=== PATIENT | male | born 1930 | race Hispanic/Latino ===

== ENCOUNTER 2020-03-13 21:18 | Inpatient (IN) | payer OTHER ==
[~2020-03-13] VITALS: Ht 175.3 cm; Wt 63.4 kg
[~2020-03-13 21:18] MED LIST: AEC81 PO; AMLO-257 PO; FINA5TAB41 PO; HYDR12.530 PO; LEVO500T2 PO; METF-444 PO; SERT25TA5 PO; TAMS0.4C32 PO
[2020-03-13 22:58] LABS: RAPID GROUP A STREP NEGATIVE (NEGATIVE)
[2020-03-13 23:15] LABS: BASOPHILS % (AUTO) 0.2 % (0.0-5.0); EOSINOPHILS % (AUTO) 0.2 % (0.0-8.0); HEMATOCRIT 38.1 % (42-54); LYMPHOCYTES % (AUTO) 21.7 % (21.0-51.0); MEAN CORPUSCULAR HEMOGLOBIN 26.1 pg (27.0-33.0); MEAN CORPUSCULAR HGB CONC 33.1 g/dL (32.0-36.0); MEAN CORPUSCULAR VOLUME 78.9 fL (79-99); MONOCYTES % (AUTO) 14.9 % (3.0-13.0); NEUTROPHILS % (AUTO) 62.6 % (40.0-77.0); PLATELET COUNT (AUTO) 147 K/uL (130-400); RED BLOOD CELL COUNT(AUTO) 4.83 MIL/uL (4.50-6.20); WHITE BLOOD COUNT (AUTO) 5.3 K/uL (4.8-10.8)
[2020-03-13 23:28] LABS: INR 1.07 (0.85-1.15); PARTIAL THROMBOPLASTIN TIME 35.2 SEC (26.3-35.5); PROTHROMBIN TIME 11.5 SEC (9.6-11.6)
[2020-03-13 23:29] LABS: ALBUMIN 3.2 g/dL (3.5-5.0); BILIRUBIN,TOTAL 0.5 mg/dL (0.2-1.0); CREATININE 1.5 mg/dL (0.5-1.5); TOTAL PROTEIN, SERUM 7.7 g/dL (6.0-8.3)
[2020-03-13 23:40] LABS: POTASSIUM 2.7 mmol/L (3.5-5.1)
[2020-03-13 23:51] LABS: B-TYPE NATRIURETIC PEPTIDE 36 pg/mL (0-100)
[2020-03-14] VITALS (7 sets, daily range): BP systolic 111–156; BP diastolic 66–79
[2020-03-14] MEDS ORDERED: ONDANSETRON HCL 4 MG/2 ML VIAL IV PRN (00:15)
[2020-03-14] MEDS ORDERED: GUAIFENESIN-DM 200/20 MG 10 ML PO PRN (00:15)
[2020-03-14] MEDS ORDERED: HYDROXYCHLOROQUINE SULFATE 200 MG TAB ONE (00:22)
[2020-03-14] MEDS ORDERED: AZITHROMYCIN 500MG+NS 250ML 250 ML IV SCH (00:30)
[2020-03-14] MEDS ORDERED: AZITHROMYCIN 250 MG TABLET PO ONE (00:41)
[2020-03-14 01:03] LABS: APPEARANCE,URINE Cloudy (CLEAR); BILIRUBIN,URINE Negative (NEGATIVE); COLOR,URINE Yellow (YELLOW); GLUCOSE, URINE (UA) Negative (NEGATIVE); KETONES,URINE 15 mg/dL (NEGATIVE); LEUKOCYTE ESTERASE ,URINE Large (NEGATIVE); NITRATE,URINE Negative (NEGATIVE); OCCULT BLOOD,URINE Small (NEGATIVE); PROTEIN,URINE POS 2+ mg/dL (NEGATIVE)
[2020-03-14] MEDS ORDERED: POTASSIUM CHLORIDE 20MEQ/100ML 100 ML IV PRN (01:15)
[2020-03-14] MEDS ORDERED: POTASSIUM CHLORIDE 20 MEQ ERTAB PO PRN (01:15)
[2020-03-14] MEDS ORDERED: LIDOCAINE HCL-MPF 1% 2ML VIAL IV PRN (01:15)
[2020-03-14 01:17] LABS: BACTERIA,URINE Few /HPF (None Seen); SQUAMOUS EPITHELIAL CELL,UR Few /HPF (0-2)
--- NOTE | 2020-03-14 01:30 | NUR ---
PT ARRIVED VIA STRETCHER WITH BRENNA ZAZUETA, FROM ER. PT AAOx3 DENIES PAIN. BED TO LOWEST LEVEL. CALL LIGHT WITHIN REACH. IV ON LEFT WRIST STARTED BY EMS. PT IS A BIT CONFUSED TO WHY HE IS HERE, HE WAS DISCHARGED FROM [facility] ON 03/11/20 AND ON REPORT WAS STATED WAS AT [facility] ABOUT A WEEK AGO AND WAS DISCHARGED. PT IS COMING FROM HOME. PT WAS SENT TO DC WITH A POTASSIUM LEVEL OF 2.7 NO COVERAGE WAS PROVIDED, WILL START POTASSIUM IV. NO MEDS WITH PATIENT. NEED TO CALL FAMILY TO BRING IN MEDS. PT IS ABLE TO WALK TO BATHROOM.
[2020-03-14] MEDS: CEFTRIAXONE SODIUM 1 GM IVP SCH ×2 (01:42→11:55)
[2020-03-14] MEDS ORDERED: POTASSIUM CHLORIDE 20MEQ/100ML 100 ML IV ONE (01:51)
[2020-03-14] MEDS ORDERED: LIDOCAINE HCL-MPF 1% 2ML VIAL ONE (01:51)
[2020-03-14 06:34] LABS: BASOPHILS % (AUTO) 0.2 % (0.0-5.0); EOSINOPHILS % (AUTO) 0.4 % (0.0-8.0); HEMATOCRIT 34.7 % (42-54); LYMPHOCYTES % (AUTO) 26.9 % (21.0-51.0); MEAN CORPUSCULAR HEMOGLOBIN 26.3 pg (27.0-33.0); MEAN CORPUSCULAR HGB CONC 32.6 g/dL (32.0-36.0); MEAN CORPUSCULAR VOLUME 80.7 fL (79-99); MONOCYTES % (AUTO) 18.8 % (3.0-13.0); NEUTROPHILS % (AUTO) 52.9 % (40.0-77.0); PLATELET COUNT (AUTO) 140 K/uL (130-400); RED CELL DISTRIBUTION WIDTH 16.3 % (11.0-15.5); WHITE BLOOD COUNT (AUTO) 5.1 K/uL (4.8-10.8)
[2020-03-14 06:54] LABS: ALBUMIN 2.5 g/dL (3.5-5.0); BILIRUBIN,DIRECT 0.1 mg/dL (0.0-0.3); BILIRUBIN,TOTAL 0.4 mg/dL (0.2-1.0); CREATININE 1.3 mg/dL (0.5-1.5); POTASSIUM 3.3 mmol/L (3.5-5.1); TOTAL PROTEIN, SERUM 6.7 g/dL (6.0-8.3)
[2020-03-14 07:44] LABS: CRP QUANTITATIVE 201.4 mg/L (0.00-9.0)
--- NOTE | 2020-03-14 08:00 | NUR ---
ASSESSMENT PT IS AAOX3 DENIES CP DENIES SOB DENIES NV NO COMPLAINTS RESTING IN BED. AM MEDS GIVEN. CALL LIGHT WITHIN REACH, ISOLATION MAINTAINED.
[2020-03-14] MEDS: FAMOTIDINE/PF 20 MG/2 ML VIAL IV SCH ×2 (08:12→20:35)
[2020-03-14] MEDS ORDERED: HYDROXYCHLOROQUINE SULFATE 200 MG TAB PO SCH (09:00)
[2020-03-14] MEDS: POTASSIUM CHLORIDE 10% ELIXIR 20 MEQ/15 ML UDCUP PO PRN (09:30)
[2020-03-14] MEDS ORDERED: POTASSIUM CHLORIDE 10% ELIXIR 20 MEQ/15 ML UDCUP PO SCH (09:30)
--- NOTE | 2020-03-14 11:48 | NUR ---
DCP: [facility] La spoke to pt's son Catarino Reina [phone], who reports that pt was here recently and was Sent to [facility]. Pt was discharged from [facility] on 03/02 to home. Son states that he noticed a big decline in pt since returning home. Pt was not eating, spending all his time in bed and son became concerned. Son took pt to [facility] [place] Saturday and pt was dc home with antibiotics for UTI. When son check on pt again, he saw he was worse and brought him to [facility] [place]. Per son, pt is a of 3 yrs, pt's son Westley stays with him, but is of no help to pt. Pt has son that lives next, Luis, who checks on pt when able. Son stated that pt has here in Oct because pt had cut off 4 fingers by accident with power tool. 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 Pt has no in home care services and no DME. Pt is seen at [facility] for medical care and meds. Son reports that they were in process of re admitting pt to [facility] for intermediate manager when he was readmitted. Family was working with Prudence at [facility] and would like for us to assist with placement at [facility]. Son states that pt has several family members that work there and pt was happy with care. Son gave verbal consent for referral to be made. CM notified CM of dc and she will work on referral Addendum: 03/14/20 at 1201 by GLORIA EDGE Amended: Links added.
[2020-03-14] MEDS: DOXYCYCLINE 100MG+NS 250ML 250 ML IV SCH ×2 (11:55→21:08)
--- NOTE | 2020-03-14 15:10 | NUR ---
SABINA PEÑA GOT NEW ORDER FOR SNF FOR RETAMA OR HNR FROM DR. KRISHNA. SPOKE TO SON CHARLIE GIBBS. SAID HE IS POA. OKAY WITH DAD GOING TO EITHER OF THOSE FACILITIES. ASKED HIM ABOUT [facility] SINCE HE SAID HE WAS HAPPY THERE. SAID ITS [facility]AY "DOES NOT NEED HIM TO BE HAPPY". SPOKE TO LUIS TO SEE IF SHE WAS USING [facility] FOR SNF. SAID NO SHE WAS USING [facility]. REMINDED ME THAT PATIENT HAD BEEN AT THEIR FACILITY 2 WEEKS AGO AND [facility] MIGHT NOT WANT PATIENT. STILL PENDING COVID RESULTS CANNOT SEND PATIENT UNTIL THEY ARE BACK. [facility] DID SAY THEY HAD GOTTEN THE AUTH FORM [facility] SINCE IT WAS SUBMITTED THERE. IT WILL BE GOOD FOR 3 DAYS UNTIL 03/16. Addendum: 03/14/20 at 1529 by LUZ MARINA DE LA CRUZ RN CM Amended: Links added.
[2020-03-14] MEDS: METHYLPREDNISOLONE SOD SUCC 40MG/ML 1ML IVP SCH (20:35)
[2020-03-15] MEDS: CEFTRIAXONE SODIUM 1 GM IVP SCH ×2 (00:30→12:10)
[2020-03-15 03:39] VITALS: BP 128/73
[2020-03-15 04:34] LABS: HEMATOCRIT 35.6 % (42-54); MEAN CORPUSCULAR HGB CONC 32.6 g/dL (32.0-36.0); MEAN CORPUSCULAR VOLUME 79.8 fL (79-99); PLATELET COUNT (AUTO) 144 K/uL (130-400); RED BLOOD CELL COUNT(AUTO) 4.46 MIL/uL (4.50-6.20); RED CELL DISTRIBUTION WIDTH 16.3 % (11.0-15.5); WHITE BLOOD COUNT (AUTO) 3.3 K/uL (4.8-10.8)
[2020-03-15 04:55] LABS: MAGNESIUM 2.1 mg/dL (1.80-2.40); PHOSPHORUS 2.4 mg/dL (2.5-4.9)
[2020-03-15 05:16] LABS: B-TYPE NATRIURETIC PEPTIDE 172 pg/mL (0-100)
[2020-03-15 05:31] LABS: CRP QUANTITATIVE 195.2 mg/L (0.00-9.0)
[2020-03-15 07:00] VITALS: BP 129/80
[2020-03-15] MEDS: FINASTERIDE 5 MG TABLET PO SCH (07:56)
[2020-03-15] MEDS: DOXYCYCLINE 100MG+NS 250ML 250 ML IV SCH ×2 (07:56→19:55)
[2020-03-15] MEDS: TAMSULOSIN HCL 0.4 MG CAP.ER.24H PO SCH (07:56)
[2020-03-15] MEDS: METHYLPREDNISOLONE SOD SUCC 40MG/ML 1ML IVP SCH ×2 (07:56→19:55)
[2020-03-15] MEDS: FAMOTIDINE/PF 20 MG/2 ML VIAL IV SCH ×2 (07:56→19:55)
--- NOTE | 2020-03-15 08:00 | NUR ---
ASSESSMENT PT IS AAOX3 DENIES CP DENIES SOB DENIES NV NO COMPLAINTS RESTING IN BED. TOLERATED MEAL. AM MEDS GIVEN. CALL LIGHT WITHIN REACH.
[2020-03-15 11:00] VITALS: BP 129/72
[2020-03-15 16:00] VITALS: BP 125/64
[2020-03-15 19:29] VITALS: BP 132/77
[2020-03-16] VITALS (7 sets, daily range): BP systolic 116–137; BP diastolic 62–83
[2020-03-16] MEDS: CEFTRIAXONE SODIUM 1 GM IVP SCH ×2 (00:57→08:17)
[2020-03-16 05:32] LABS: HEMATOCRIT 33.5 % (42-54); MEAN CORPUSCULAR HEMOGLOBIN 27.1 pg (27.0-33.0); MEAN CORPUSCULAR VOLUME 79.6 fL (79-99); PLATELET COUNT (AUTO) 182 K/uL (130-400); RED BLOOD CELL COUNT(AUTO) 4.21 MIL/uL (4.50-6.20); RED CELL DISTRIBUTION WIDTH 16.4 % (11.0-15.5); WHITE BLOOD COUNT (AUTO) 4.7 K/uL (4.8-10.8)
[2020-03-16] MEDS: FAMOTIDINE/PF 20 MG/2 ML VIAL IV SCH ×2 (08:17→20:21)
[2020-03-16] MEDS: METHYLPREDNISOLONE SOD SUCC 40MG/ML 1ML IVP SCH ×2 (08:17→20:21)
[2020-03-16] MEDS: DOXYCYCLINE 100MG+NS 250ML 250 ML IV SCH ×2 (08:18→20:20)
[2020-03-16] MEDS: TAMSULOSIN HCL 0.4 MG CAP.ER.24H PO SCH (08:18)
[2020-03-16] MEDS: FINASTERIDE 5 MG TABLET PO SCH (08:18)
--- NOTE | 2020-03-16 12:06 | NUR ---
CM Note: Sheila auth good up to 03/16. CM spoke to Prudence w/[facility]. Received clinicals, order, MARS, PASRR, Covid post acute assessment. Per Prudence pt has approval and auth good up to today 03/16. Pt will need reauth for tomorrow 03/17. EMS arranged and faxed for today, primary nurse to call [facility] once pt ready to DC. Pending MD clearance and DC order. Primary nurse aware. CM to cont to follow up.
[2020-03-16] MEDS ORDERED: SODIUM CHLORIDE 0.9% 250 ML IV ONE (17:07)
[2020-03-17] MEDS: CEFTRIAXONE SODIUM 1 GM IVP SCH (00:26)
[2020-03-17 04:04] VITALS: BP 143/73
[2020-03-17 05:43] LABS: HEMATOCRIT 33.6 % (42-54); MEAN CORPUSCULAR HGB CONC 32.7 g/dL (32.0-36.0); MEAN CORPUSCULAR VOLUME 79.4 fL (79-99); PLATELET COUNT (AUTO) 195 K/uL (130-400); RED BLOOD CELL COUNT(AUTO) 4.23 MIL/uL (4.50-6.20); RED CELL DISTRIBUTION WIDTH 16.4 % (11.0-15.5); WHITE BLOOD COUNT (AUTO) 6.4 K/uL (4.8-10.8)
[2020-03-17 08:00] VITALS: BP 126/86
[2020-03-17] MEDS: FINASTERIDE 5 MG TABLET PO SCH (09:57)
[2020-03-17] MEDS: FAMOTIDINE/PF 20 MG/2 ML VIAL IV SCH ×2 (09:57→21:28)
[2020-03-17] MEDS: TAMSULOSIN HCL 0.4 MG CAP.ER.24H PO SCH (09:57)
[2020-03-17] MEDS: AMOXICILLIN 500 MG CAPSULE PO SCH ×2 (09:58→21:28)
--- NOTE | 2020-03-17 10:21 | NUR ---
INFECTION CONTROL-COVID RESULTS NEGATIVE.
[2020-03-17 11:57] VITALS: BP 123/69
--- NOTE | 2020-03-17 15:49 | NUR ---
CM Note: HNR pending approval CM spoke to Minnie Monge, received order,clinicals, PASRR, Covid post acute assessments this morning. Currently working. Verbalized pt does not have [facility] services connections. Made aware pt used [employer] insurance and had approval for [facility] but lost auth yesterday, will just need reauth for today. Pt pending approval at this time. EMS arranged and faxed for today in case pt received approval, primary nurse to call [facility] once pt ready to DC. Primary nurse aware. CM to cont to follow up.
[2020-03-17 16:00] VITALS: BP 135/79
[2020-03-17 19:59] VITALS: BP 124/74
[2020-03-17 23:16] VITALS: BP 134/75
[2020-03-18 03:52] VITALS: BP 156/68
[2020-03-18 08:13] VITALS: BP 135/72
[2020-03-18] MEDS: FAMOTIDINE/PF 20 MG/2 ML VIAL IV SCH ×2 (09:14→21:24)
[2020-03-18] MEDS: AMOXICILLIN 500 MG CAPSULE PO SCH ×2 (09:14→21:24)
[2020-03-18] MEDS: FINASTERIDE 5 MG TABLET PO SCH (09:15)
[2020-03-18] MEDS: TAMSULOSIN HCL 0.4 MG CAP.ER.24H PO SCH (09:15)
[2020-03-18 11:25] VITALS: BP 127/78
--- NOTE | 2020-03-18 14:46 | NUR ---
MIRIAM Note: HNR pending approval CM spoke to [facility] w/HNR. As per [facility] Health Dept wants pt to be tested again after 14 days from first negative test in hospital. Depth requires 2 negative testing 14 days apart prior to transfer to SNF. Pt pending approval at this time. CM informed Dr Gordon of health dept request. MD lord to order retes for 03/28. In the mean time pt remains in the hospital. order entered repeat covid19 test for 03/28. CM spoke to pt's son updated w/POC. Son prefers pt to follow through w/HNR as he would like to have Dr Gordon follow pt at SNF. Made aware of the above. Son is agreeable. Made aware CM will cont to give updates. CM informed Keren Moon CM Director. Made aware of the above.
[2020-03-18 16:32] VITALS: BP 135/77
[2020-03-18 20:11] VITALS: BP 127/78
[2020-03-18 23:50] VITALS: BP 130/71
[2020-03-19 04:07] VITALS: BP 114/78
[2020-03-19 05:10] LABS: BASOPHILS % (AUTO) 0.1 % (0.0-5.0); EOSINOPHILS % (AUTO) 1.2 % (0.0-8.0); HEMATOCRIT 35.5 % (42-54); LYMPHOCYTES % (AUTO) 15.7 % (21.0-51.0); MEAN CORPUSCULAR HEMOGLOBIN 26.8 pg (27.0-33.0); MEAN CORPUSCULAR HGB CONC 33.2 g/dL (32.0-36.0); MEAN CORPUSCULAR VOLUME 80.7 fL (79-99); MONOCYTES % (AUTO) 16.2 % (3.0-13.0); NEUTROPHILS % (AUTO) 65.8 % (40.0-77.0); PLATELET COUNT (AUTO) 196 K/uL (130-400); WHITE BLOOD COUNT (AUTO) 8.9 K/uL (4.8-10.8)
[2020-03-19 05:31] LABS: CARBON DIOXIDE 23 mmol/L (21-32); CHLORIDE 105 mmol/L (101-111); GLOMERULAR FILTR. RATE CALC 75 mL/min (>60); GLUCOSE,RANDOM 110 mg/dL (70-105); PHOSPHORUS 2.3 mg/dL (2.5-4.9); POTASSIUM 3.1 mmol/L (3.5-5.1); SODIUM SERUM 138 mmol/L (136-145); UREA NITROGEN, BLOOD 25 mg/dL (7-18)
[2020-03-19] MEDS: POTASSIUM CHLORIDE 10% ELIXIR 20 MEQ/15 ML UDCUP PO PRN ×3 (06:30→10:29)
[2020-03-19 08:00] VITALS: BP 135/79
[2020-03-19] MEDS: TAMSULOSIN HCL 0.4 MG CAP.ER.24H PO SCH (08:27)
[2020-03-19] MEDS: AMOXICILLIN 500 MG CAPSULE PO SCH ×2 (08:27→20:35)
[2020-03-19] MEDS: FAMOTIDINE/PF 20 MG/2 ML VIAL IV SCH ×2 (08:27→20:36)
[2020-03-19] MEDS: FINASTERIDE 5 MG TABLET PO SCH (08:27)
[2020-03-19] MEDS ORDERED: DRONABINOL 2.5 MG CAP PO ONE (09:00)
[2020-03-19 11:18] VITALS: BP 120/72
[2020-03-19] MEDS ORDERED: POTASSIUM CHLORIDE 20MEQ/100ML 100 ML IV PRN (15:45)
[2020-03-19] MEDS ORDERED: POTASSIUM CHLORIDE 20 MEQ ERTAB PO PRN (15:45)
[2020-03-19 16:00] VITALS: BP 138/76
[2020-03-19 19:24] VITALS: BP 140/83
[2020-03-19 23:56] VITALS: BP 125/67
[2020-03-20] VITALS (7 sets, daily range): BP systolic 126–150; BP diastolic 65–86
[2020-03-20 04:46] LABS: BASOPHILS % (AUTO) 0.1 % (0.0-5.0); EOSINOPHILS % (AUTO) 1.6 % (0.0-8.0); HEMATOCRIT 37.8 % (42-54); LYMPHOCYTES % (AUTO) 14.5 % (21.0-51.0); MEAN CORPUSCULAR HEMOGLOBIN 26.8 pg (27.0-33.0); MEAN CORPUSCULAR HGB CONC 32.3 g/dL (32.0-36.0); MEAN CORPUSCULAR VOLUME 83.1 fL (79-99); MONOCYTES % (AUTO) 15.9 % (3.0-13.0); NEUTROPHILS % (AUTO) 66.2 % (40.0-77.0); PLATELET COUNT (AUTO) 158 K/uL (130-400); RED BLOOD CELL COUNT(AUTO) 4.55 MIL/uL (4.50-6.20); RED CELL DISTRIBUTION WIDTH 16.6 % (11.0-15.5); WHITE BLOOD COUNT (AUTO) 9.4 K/uL (4.8-10.8)
[2020-03-20 05:07] LABS: CREATININE 1.1 mg/dL (0.5-1.5); POTASSIUM 3.8 mmol/L (3.5-5.1)
[2020-03-20] MEDS: TAMSULOSIN HCL 0.4 MG CAP.ER.24H PO SCH (10:34)
[2020-03-20] MEDS: AMOXICILLIN 500 MG CAPSULE PO SCH ×2 (10:34→20:13)
[2020-03-20] MEDS: FAMOTIDINE/PF 20 MG/2 ML VIAL IV SCH ×2 (10:34→20:13)
[2020-03-20] MEDS: FINASTERIDE 5 MG TABLET PO SCH (10:34)
--- NOTE | 2020-03-20 13:43 | NUR ---
HAND OFF REPORT GIVEN TO GOPI CEJA. COVID NASAL SWAB REPEATED AND SENT TO LAB TRANSFERRED TO ROOM 223
[2020-03-21 03:21] VITALS: BP 149/75
[2020-03-21 06:07] LABS: BASOPHILS % (AUTO) 0.1 % (0.0-5.0); HEMATOCRIT 32.8 % (42-54); LYMPHOCYTES % (AUTO) 13.5 % (21.0-51.0); MEAN CORPUSCULAR HEMOGLOBIN 26.8 pg (27.0-33.0); MEAN CORPUSCULAR HGB CONC 33.2 g/dL (32.0-36.0); MEAN CORPUSCULAR VOLUME 80.8 fL (79-99); MONOCYTES % (AUTO) 17.1 % (3.0-13.0); NEUTROPHILS % (AUTO) 66.8 % (40.0-77.0); PLATELET COUNT (AUTO) 191 K/uL (130-400); RED BLOOD CELL COUNT(AUTO) 4.06 MIL/uL (4.50-6.20); RED CELL DISTRIBUTION WIDTH 16.1 % (11.0-15.5); WHITE BLOOD COUNT (AUTO) 8.6 K/uL (4.8-10.8)
[2020-03-21 06:18] LABS: POTASSIUM 3.5 mmol/L (3.5-5.1)
[2020-03-21] MEDS: POTASSIUM CHLORIDE 10% ELIXIR 20 MEQ/15 ML UDCUP PO PRN ×2 (06:47→08:22)
--- NOTE | 2020-03-21 07:45 | NUR ---
AM ASSESSMENT PT LAYING IN BED, HOB ELEVATED 30 DEGREES, RESTING. A/O X 3. NO SOB. NO DISTRESS NOTED. DENIES CHEST PAIN OR DISCOMFORT. REFUSING CONFERENCE TRANSLATOR. DENIES N/V AND/OR DIARRHEA. UP W/ASSISTANCE. INSTRUCTED TO CALL FOR ASSISTANCE. CALL VICKI W/IN REACH.
[2020-03-21] MEDS: TAMSULOSIN HCL 0.4 MG CAP.ER.24H PO SCH (08:22)
[2020-03-21] MEDS: FAMOTIDINE 20MG TAB 20 MG TAB PO SCH ×2 (08:22→20:12)
[2020-03-21] MEDS: AMOXICILLIN 500 MG CAPSULE PO SCH ×2 (08:22→20:11)
[2020-03-21] MEDS: FINASTERIDE 5 MG TABLET PO SCH (08:22)
[2020-03-21 08:25] VITALS: BP 142/70
[2020-03-21 12:11] VITALS: BP 130/76
[2020-03-21] MEDS: ASCORBIC ACID 500 MG TAB PO SCH (16:22)
[2020-03-21 16:32] VITALS: BP 142/68
[2020-03-21 19:59] VITALS: BP 135/77
[2020-03-21] MEDS: FERROUS SULFATE 325 MG TABLET.DR PO SCH (20:12)
[2020-03-21 23:04] VITALS: BP 145/85
[2020-03-22 05:00] VITALS: BP 131/87
[2020-03-22 05:41] LABS: BASOPHILS % (AUTO) 0.1 % (0.0-5.0); EOSINOPHILS % (AUTO) 1.1 % (0.0-8.0); HEMATOCRIT 34.7 % (42-54); LYMPHOCYTES % (AUTO) 17.2 % (21.0-51.0); MEAN CORPUSCULAR HEMOGLOBIN 26.3 pg (27.0-33.0); MEAN CORPUSCULAR VOLUME 82.2 fL (79-99); MONOCYTES % (AUTO) 16.6 % (3.0-13.0); NEUTROPHILS % (AUTO) 64.1 % (40.0-77.0); PLATELET COUNT (AUTO) 189 K/uL (130-400); RED BLOOD CELL COUNT(AUTO) 4.22 MIL/uL (4.50-6.20); RED CELL DISTRIBUTION WIDTH 16.6 % (11.0-15.5)
[2020-03-22 05:50] LABS: CREATININE 0.9 mg/dL (0.5-1.5); POTASSIUM 3.8 mmol/L (3.5-5.1)
[2020-03-22 07:00] VITALS: BP 141/72
--- NOTE | 2020-03-22 08:00 | NUR ---
AM ASSESSMENT PT LAYING IN BED, RESTING. A/O X 3. NO SOB. NO DISTRESS NOTED. DENIES CHEST PAIN OR DISCOMFORT. DENIES PALPITATIONS. TELE: PACED. DENIES N/V AND/OR DIARRHEA. UP W/ASSISTANCE. INSTRUCTED TO CALL FOR ASSISTANCE. CALL VICKI W/IN REACH. PENDING COVID RESULTS. DCP TO [facility].
[2020-03-22] MEDS: FAMOTIDINE 20MG TAB 20 MG TAB PO SCH ×2 (08:12→20:32)
[2020-03-22] MEDS: ASCORBIC ACID 500 MG TAB PO SCH (08:13)
[2020-03-22] MEDS: ENOXAPARIN SODIUM 40 MG/0.4 ML SYRINGE SQ SCH (08:13)
[2020-03-22] MEDS: FERROUS SULFATE 325 MG TABLET.DR PO SCH ×2 (08:13→20:32)
[2020-03-22] MEDS: FINASTERIDE 5 MG TABLET PO SCH (08:13)
[2020-03-22] MEDS: TAMSULOSIN HCL 0.4 MG CAP.ER.24H PO SCH (08:13)
[2020-03-22] MEDS: AMOXICILLIN 500 MG CAPSULE PO SCH ×2 (08:14→20:32)
[2020-03-22 11:35] VITALS: BP 124/76
--- NOTE | 2020-03-22 13:59 | NUR ---
GARO SCREEN - LOS X 8 Pt admitted with Bronchopneumonia, Hx HTN, DM. Pt tolerating Heart healthy diet order, however with poor PO intake today (25%). Pt low BMI for age (<22.0, greater than 65yrs old). Recommend 60mL Promod QD. Recommend add 75gm CCD Recommend Glucerna QD RD to continue to monitor. Please notify as additional nutrition concerns arise. Thank you. Addendum: 03/22/20 at [address] Amended: Links added.
[2020-03-22 15:30] VITALS: BP 153/101
[2020-03-22 20:08] VITALS: BP 131/77
[2020-03-22 23:08] VITALS: BP 118/81
[2020-03-23 03:35] VITALS: BP 133/75
[2020-03-23] MEDS: ASCORBIC ACID 500 MG TAB PO SCH (07:49)
[2020-03-23] MEDS: AMOXICILLIN 500 MG CAPSULE PO SCH ×2 (07:49→16:46)
[2020-03-23] MEDS: FERROUS SULFATE 325 MG TABLET.DR PO SCH (07:49)
[2020-03-23] MEDS: TAMSULOSIN HCL 0.4 MG CAP.ER.24H PO SCH (07:49)
[2020-03-23] MEDS: FINASTERIDE 5 MG TABLET PO SCH (07:49)
[2020-03-23] MEDS: FAMOTIDINE 20MG TAB 20 MG TAB PO SCH (07:49)
[2020-03-23] MEDS: ENOXAPARIN SODIUM 40 MG/0.4 ML SYRINGE SQ SCH (07:50)
--- NOTE | 2020-03-23 08:00 | NUR ---
ASSESSMENT PT IS AAOX3 DENIES CP DENIES SOB DENIES NV NO COMPLAINTS. ON ROOM AIR. BREATHING PATTERN IS EVEN AND UNLABORED, CALL LIGHT WITHIN REACH.
[2020-03-23 09:05] VITALS: BP 135/87
--- NOTE | 2020-03-23 10:05 | NUR ---
DISCHARGE PLANNING WITH DR KRISHNA DISCUSSED: SON WANTS PATIENT TO HAVE LONGTERM PLACEMENT PATIENT WANTS TO GO HOME QUESTION OF HOME ENVIRONMENT- POSS RATS PER SON, NO RATS PER PATIENT STILL PENDING ACCEPTANCE AT [facility]- PENDING LAST COVID NEG TEST PATIENT HAS NO MORE SKILLED NEED CALL TO [facility]. [facility] SUGGESTING APS REFERRAL AND APPOINTMENT W MD ON DISCHARGE CALL TO [facility]: CAN HE GO IF NO SKILLED NEED? ALEXY CALL BACK,. ORDERS IN FOR APS, [facility] FOLLOW UP Addendum: 03/23/20 at 1014 by BEVERLEY WINN RN CM Amended: Links added.
[2020-03-23] MEDS ORDERED: ASCO500T20 PO (10:28)
[2020-03-23] MEDS ORDERED: FERR324T4 PO (10:28)
[2020-03-23] MEDS ORDERED: AMOX500C2 PO (10:28)
--- NOTE | 2020-03-23 11:41 | NUR ---
R MAT CLEANING MACHINE OPERATOR CALL BACK FROM SCAR AT [facility] REGARDING REFERRAL- WAS ADVISED BY HER THAT THEY CANNO T TAKE PB MATHUR SECOND COVID ON March- ADIVSED HER THAT PATINET IS ON PO MEDS, NO MED NECESSITY EXCEPT POSS PT. ENRIQUE FREED PATIENT WOULD BE COMING SKILLED UNDER [facility] ADVISED HER HAVE ATTEMPTED TO CALL SON BUT NO ANSWER WILL REACH OUT AGAIN.
[2020-03-23 12:02] VITALS: BP 129/85
--- NOTE | 2020-03-23 12:08 | NUR ---
CALL TO APS ORDERED REFERENCE NUMBER [id number] [facility] #[id number] FOR COMPLAINTS BY SON THAT PATIENT'S HOME ENVIROMENT IS NOT SUITABLE, SONHILARIO THAT LIVES THERE IS NOT HELPFUL, THERE ARE RATS. APS WILL FOLLOW UP
--- NOTE | 2020-03-23 12:10 | NUR ---
PROVIDER SERVICES THROUGH [facility] CALL TO CHANDU KENT FOR PROVIDER SERVICES- SHE CALLED BACK, STATED SHE SPOKE TO PATIENT IN ROOM, ADVISED HER WE WERE SENDING [facility] TO [facility] FOR [facility]POINT[facility] FOR POSSIBLE [facility] HOME CARE. SHE WILL FOLLOW UP WITH PATIENT ON DISCHARGE.
--- NOTE | 2020-03-23 12:11 | NUR ---
CALL X 2 TO [facility] GUERRA WITH OUT CALL BACK
--- NOTE | 2020-03-23 15:57 | NUR ---
CALL X2 TO SON CHARLIE CALL X1 TO HOME PHONE X1 TO ALTERNATE NUMBER ON FACE SHEET. NO ANSWER. UNABLE TO CONTACT FAMILY TO INFOMR OF DISCHARGE. PRIMARY RN ADVISED. DISCHAEGE ORDER IN PLACE SINCE THIS AM
[2020-03-23 16:19] VITALS: BP 131/68
--- NOTE | 2020-03-23 16:34 | NUR ---
DISCHARGE ARRANGEMENT-S DAUGHTER CONTACTED CONTACTED LOLLY HAJI, ANOTHER NUMBER ON FACE SHEET AN ALTERANTE UNDER HOME NUMBER. ADVISED HER THAT PT WILL BE DISCHARGING TODAY. LOLLY STATES PT LIVES'BASICALLY ALONE' . WITHBRORONAK MCKENZIE THERE AT TIME. ARRANGEMENT TO SUPPORT DISCHARGE EXPLAINED TO BO- PATIENT INFO TO BE SENT TO ID FOR FOLLOW UP FO [facility]- NO SNF BECAUSE NO SKILLED NEED, FAMILY WILL HAVE TO MAKE ARRANGMENT FOR BOTTOMING ROOM INSPECTOR CARE IN THE FUTURE, BUT NOT FROM THIS ADMISISON, NO MEDICAL NEED TO KEEP PT IN HOSPITAL. NO NEED FOR OXYGEN, WALKING AOBUT IN ROOM WIHTOUT DISTRESS. VERBALIZED UNDERSTANDING, STATES SHE WILL GET IN TOUCH WITH BROTHER CHARLIE, WORKING TILL 6 PM, AND ONE OR THEOTHER WILL COME TO GET PATIENT. NUMBER GIVEN TO GOPI GUNDERSON RN FOR RELYING OF DISCHARGE INSTRUCTIONS Addendum: 03/23/20 at 1638 by BEVERLEY WINN RN Amended: Links added.
--- NOTE | 2020-03-23 17:00 | NUR ---
DISCHARGE INSTRUCTIONS GIVEN TO PATIENT AND DAUGHTER LOLLY HAJI VIA PHONE. AGREE TO FOLLOW INSTRUCTIONS ORDERED, AGREES TO COMPLY WITH COVID PUI INSTRUCTIONS. AGREES TO TAKE MEDS ORDERED.ALL QUESTIONS ANSWERED. PIV REMOVED, CATH TIP INTACT, TELE PACK REMOVED. AWAITING RIDE.
--- NOTE | 2020-03-23 17:35 | NUR ---
CALL REC'D FROM APS CALL REC'D FROM APS MARIUSZ GALEANO. CONFIRMED PATIENT BEING DISCHARGED TODAY. EXPLAINED THAT PATIENT DOES NOT MEET MEDICAL CRITERIA FOR PLACEMENT AT A FACILITY- NO DRESSINGS, NO IV MEDS; PT ASSESSMENT TODAY STATES ABULATORY IN THE ROOM, NO PT NEEDS FOR REHAB. MARIUSZ STATED PATIENT LIVES WITH SON ("WHO DRINKS A LOT" )AND AN DAUGHTER IN [place]. STATES GOT INFO FROM DAUGHTER Gris AMBROCIO WHO STATES 'PATIENT HAS TO FEND FOR HIMSELF'. ADVISED HIM THAT PATIENTS PROGRESS NOTES AND ASSESSMENTS ALL SAY HE IS ALERT AND ORIENTED, AND MD TODAY STATES THAT THE PATIENT WANTS TO GO HOME. MARIUSZ TO FOLLOW UP.
--- NOTE | 2020-03-23 18:17 | NUR ---
DOWN TO RIDE IN WHEELCHAIR, PATIENT IS WEARING MASK. ALL BELONGINGS TAKEN WITH PATIENT.
--- NOTE | 2020-03-24 11:16 | NUR ---
INFORMATION SENT TO [facility] NOTED COVID + STATUS LATE IN THE EVENING AFTER PATIENT LEFT SENT INFO TO [facility]. SENT EMAIL TO Glenroy HOLLINS IN INFECTION BOX TOE BUFFER AND DIR OF MIRIAM SHANKS. ADVISED TO GIVE COURTESY CALL TO [facility] REFERENCE #[id number] [facility] #[id number]
== END 2020-03-23 18:45 | disposition home or self-care (01) | DRG 177 ==
LOC: EDH 21:18 → OBSVTOIN 03-14 00:30 → INTOOBSV 03-14 00:30 → EDHIP 03-14 00:30 → 2DH 03-14 01:40 → 4CH 03-17 01:47 → 2DH 03-20 13:57
PROVIDERS: ADMIT Internal Medicine; ATTEND Internal Medicine
DX: U07.1 COVID-19 (principal); J15.9 Unspecified bacterial pneumonia; J96.01 Acute respiratory failure with hypoxia; N39.0 Urinary tract infection, site not specified; I48.20 Chronic atrial fibrillation, unspecified; E87.6 Hypokalemia; Z95.0 Presence of cardiac pacemaker; B95.2 Enterococcus as the cause of diseases classified elsewhere; D64.9 Anemia, unspecified; E11.9 Type 2 diabetes mellitus without complications; E78.5 Hyperlipidemia, unspecified; F32.9 Major depressive disorder, single episode, unspecified; I10 Essential (primary) hypertension; N40.0 Benign prostatic hyperplasia without lower urinary tract symptoms; Z96.649 Presence of unspecified artificial hip joint; Z82.49 Family history of ischemic heart disease and other diseases of the circulatory system; Z89.022 Acquired absence of left finger(s); Z89.021 Acquired absence of right finger(s)
CPT/HCPCS: 36415; 71045; 80048; 80053; 80076; 81001; 82728; 82948; 83605; 83615; 83735; 83880; 84100; 84132; 84145; 84443; 85025; 85027; 85378; 85610; 85730; 86140; 87040; 87077; 87088; 87186; 87633; 87635; 87804; 87880; 93005; G0378; J0456; J0696; J1650; J2920; J3480; J3490; J7050; Q0167

== ENCOUNTER 2020-03-24 20:56 | Inpatient (IN) | payer OTHER ==
[~2020-03-24] VITALS: Ht 175.3 cm; Wt 63.5 kg
[~2020-03-24 20:56] MED LIST changes: -AMLO-257 PO; +AMLO5TAB9 PO; +AMOX500C2 PO; +ASCO500T20 PO; +FERR324T4 PO; -LEVO500T2 PO
[2020-03-24 21:58] LABS: BASOPHILS % (AUTO) 0.1 % (0.0-5.0); EOSINOPHILS % (AUTO) 0.7 % (0.0-8.0); HEMATOCRIT 33.9 % (42-54); LYMPHOCYTES % (AUTO) 16.7 % (21.0-51.0); MEAN CORPUSCULAR HEMOGLOBIN 27.1 pg (27.0-33.0); MEAN CORPUSCULAR VOLUME 81.9 fL (79-99); MONOCYTES % (AUTO) 14.9 % (3.0-13.0); NEUTROPHILS % (AUTO) 67.3 % (40.0-77.0); PLATELET COUNT (AUTO) 183 K/uL (130-400); RED BLOOD CELL COUNT(AUTO) 4.14 MIL/uL (4.50-6.20); RED CELL DISTRIBUTION WIDTH 16.3 % (11.0-15.5); WHITE BLOOD COUNT (AUTO) 7.2 K/uL (4.8-10.8)
[2020-03-24] MEDS ORDERED: ZOSYN 3.375GM+NS 50ML 50 ML IV ONE (22:04)
[2020-03-24 22:12] LABS: INR 1.21 (0.85-1.15); PARTIAL THROMBOPLASTIN TIME 27.4 SEC (26.3-35.5)
[2020-03-24 22:22] LABS: CREATININE 1.3 mg/dL (0.5-1.5); POTASSIUM 3.5 mmol/L (3.5-5.1)
[2020-03-24 22:26] LABS: ALBUMIN 2.4 g/dL (3.5-5.0); BILIRUBIN,TOTAL 0.4 mg/dL (0.2-1.0); TOTAL PROTEIN, SERUM 6.7 g/dL (6.0-8.3)
[2020-03-24 22:28] LABS: B-TYPE NATRIURETIC PEPTIDE 51 pg/mL (0-100)
[2020-03-24] MEDS ORDERED: ACETAMINOPHEN 325 MG TAB PO PRN ×2 (22:30)
[2020-03-24] MEDS ORDERED: HYDRALAZINE HCL 20 MG/ML VIAL IV PRN (22:30)
[2020-03-24] MEDS ORDERED: ONDANSETRON HCL 4 MG/2 ML VIAL IV PRN (22:30)
[2020-03-24] MEDS ORDERED: LACTULOSE 20 GM/30 ML UDCUP PO PRN (22:30)
[2020-03-24] MEDS ORDERED: PHARMACY COMMUNICATION MISC SCH (23:30)
[2020-03-25] VITALS (8 sets, daily range): BP systolic 94–140; BP diastolic 59–79
[2020-03-25] MEDS: IPRATROPIUM/ALBUTEROL SULFATE 3 ML SOLUTION IH SCH ×3 (00:03→11:20)
[2020-03-25 04:49] LABS: BASOPHILS % (AUTO) 0.1 % (0.0-5.0); EOSINOPHILS % (AUTO) 0.5 % (0.0-8.0); HEMATOCRIT 31.3 % (42-54); LYMPHOCYTES % (AUTO) 18.9 % (21.0-51.0); MEAN CORPUSCULAR HGB CONC 32.3 g/dL (32.0-36.0); MEAN CORPUSCULAR VOLUME 80.7 fL (79-99); MONOCYTES % (AUTO) 17.4 % (3.0-13.0); NEUTROPHILS % (AUTO) 62.1 % (40.0-77.0); PLATELET COUNT (AUTO) 172 K/uL (130-400); RED BLOOD CELL COUNT(AUTO) 3.88 MIL/uL (4.50-6.20); WHITE BLOOD COUNT (AUTO) 7.4 K/uL (4.8-10.8)
[2020-03-25] MEDS: ZOSYN 3.375GM+NS 50ML 50 ML IV SCH ×2 (04:55→12:13)
[2020-03-25 05:18] LABS: CREATININE 1.2 mg/dL (0.5-1.5); POTASSIUM 3.5 mmol/L (3.5-5.1)
[2020-03-25] MEDS: INSULIN HUMULIN R 100 UNIT/ML 3ML SQ SCH ×4 (07:10→20:18)
[2020-03-25] MEDS: FAMOTIDINE 20MG TAB 20 MG TAB PO SCH ×2 (08:16→20:31)
[2020-03-25] MEDS: ENOXAPARIN SODIUM 40 MG/0.4 ML SYRINGE SQ SCH (08:17)
--- NOTE | 2020-03-25 15:06 | NUR ---
INITIAL MET W MD SUAZO ORNTEQUILA FOR DISCHARGE PLANNING, STATES HE HAD SPOKED TO [facility] THIS AM RE PT'S NEEDS.B PT NEEDS MORE SUPPORT AT HOME. ADVISED THAT INFO WAS SENT TO [facility] ALREADY- DR. Brownlee GAVE NEW ORDER TO MAKE ARRANGEMENTS. CALL TO VALENTINO BARNES AT [facility] AND HE STATED HE WOULD REFER PATIENT TO HOME BASED SERVICES. CALL PLACED TO WICHO @ [facility]- SHE ADVISED THAT SHE HAD ALREADY RECD REFERRAL AND SPOKEN TO DAUGHTER LOLLY COLLINS- BUT NEED TO GET PERMISSION FROM A [facility]IQ GUERRA TO MAKE ARRANGEMENT FOR HOME BASED SERVICES. ADVISED WICHO PATIENT IS ALSO GOING TO BE PICKED UP BY [facility]/ [facility]U KENT FOR PROVIDER SERVICES COVID PENDING TEST- UNLIKELY TO GET CONFIRMATION FO [facility] TODAY- DISCHARGE SATURDAY IF SERVICES CONFIRMED AND COVID TEST BACK . Addendum: 03/25/20 at 1516 by BEVERLEY WINN RN CM Amended: Links added.
[2020-03-25] MEDS ORDERED: ALBUTEROL SULFATE 0.083% 2.5 MG/3 ML INH IH PRN (17:15)
[2020-03-25] MEDS ORDERED: DRONABINOL 2.5 MG CAP PO ONE (18:30)
[2020-03-25] MEDS: AMOXICILLIN 500 MG CAPSULE PO SCH (20:31)
[2020-03-26 03:00] VITALS: BP 132/83
[2020-03-26] MEDS: INSULIN HUMULIN R 100 UNIT/ML 3ML SQ SCH ×4 (05:58→20:57)
[2020-03-26] MEDS: AMOXICILLIN 500 MG CAPSULE PO SCH ×2 (06:39→18:01)
[2020-03-26 08:00] VITALS: BP 118/57
[2020-03-26] MEDS: FAMOTIDINE 20MG TAB 20 MG TAB PO SCH ×2 (08:02→20:59)
[2020-03-26] MEDS: ENOXAPARIN SODIUM 40 MG/0.4 ML SYRINGE SQ SCH (08:03)
[2020-03-26 12:00] VITALS: BP 127/71
--- NOTE | 2020-03-26 14:03 | NUR ---
Patient to be seen by in-house PT on Saturday. Addendum: 03/26/20 at 1404 by JENNIFER CHAMBERS PT PT Amended: Links added. Addendum: 03/26/20 at 1407 by JENNIFER CHAMBERS PT PT As per nurses, patient tested positive for Covid 19 and they were not sure yet if the patient was to stay or if he was to be DC'd. PT told to wait and check for status tomorrow.
--- NOTE | 2020-03-26 15:32 | NUR ---
HANDOFF REPORT BEDSIDE REPORT GIVEN TO BRENNA ASHTON; PATIENT RESTING COMFORTABLY IN BED WITH NO COMPLAINTS AT THIS TIME
[2020-03-26 16:00] VITALS: BP 129/79
[2020-03-26] MEDS: DEXTROSE 5%-LACTATED RINGERS 1,000 ML IV SCH (16:18)
[2020-03-26] MEDS: AZITHROMYCIN 500MG+NS 250ML 250 ML IV SCH (16:18)
[2020-03-26 19:00] VITALS: BP 137/80
--- NOTE | 2020-03-26 19:15 | NUR ---
On Enhanced Precaution unit. Addendum: 03/27/20 at 0035 by ELIO BURDICK RN RN Amended: Links added.
--- NOTE | 2020-03-26 19:15 | NUR ---
PM Assessment Received pt pleasantly conversant & cooperative with D5NS at 50cc infusing well. Routine assessment done, plan of care discuss, denies discomfort. Verified re: BM stated he had one this morning, soft no issue. Pt reminded to call for assistance when he wants to get out of bed, agreed.
[2020-03-26] MEDS ORDERED: LORAZEPAM 0.5 MG TABLET PO PRN (19:30)
[2020-03-26 23:00] VITALS: BP 147/80
[2020-03-27 03:00] VITALS: BP 134/70
[2020-03-27] MEDS: INSULIN HUMULIN R 100 UNIT/ML 3ML SQ SCH ×4 (05:26→20:46)
[2020-03-27] MEDS: AMOXICILLIN 500 MG CAPSULE PO SCH (05:36)
[2020-03-27 08:00] VITALS: BP 142/98
[2020-03-27] MEDS: ASCORBIC ACID 500 MG TAB PO SCH (08:05)
[2020-03-27] MEDS: FAMOTIDINE 20MG TAB 20 MG TAB PO SCH ×2 (08:05→20:08)
[2020-03-27] MEDS: ENOXAPARIN SODIUM 40 MG/0.4 ML SYRINGE SQ SCH (08:06)
[2020-03-27] MEDS: DEXTROSE 5%-LACTATED RINGERS 1,000 ML IV SCH ×2 (08:06→12:57)
--- NOTE | 2020-03-27 10:59 | NUR ---
PT evaluation to be done by in-house PT on Saturday. Addendum: 03/27/20 at 1059 by JENNIFER CHAMBERS, PT PT Amended: Links added.
[2020-03-27 12:00] VITALS: BP 137/69
[2020-03-27 16:00] VITALS: BP 132/79
--- NOTE | 2020-03-27 16:30 | NUR ---
CM NOTE CM spoke to Dr. Duval regarding d/c planning. States to discuss with d/c planning to home with [facility] in regards to increase support. States if unable to make arrangements, then plan to SNF. Prefers pt be transferred to [facility] or [place]. CM to f/u on Saturday when [facility] dialysis social worker is available.
[2020-03-27] MEDS: AZITHROMYCIN 500MG+NS 250ML 250 ML IV SCH (17:19)
[2020-03-27 20:00] VITALS: BP 141/79
[2020-03-28 00:30] VITALS: BP 141/73
[2020-03-28 04:30] VITALS: BP 147/72
[2020-03-28] MEDS: INSULIN HUMULIN R 100 UNIT/ML 3ML SQ SCH ×4 (06:20→19:29)
[2020-03-28 07:30] VITALS: BP 150/73
[2020-03-28] MEDS: FAMOTIDINE 20MG TAB 20 MG TAB PO SCH ×2 (08:04→20:06)
[2020-03-28] MEDS: DEXTROSE 5%-LACTATED RINGERS 1,000 ML IV SCH (08:04)
[2020-03-28] MEDS: ASCORBIC ACID 500 MG TAB PO SCH (08:04)
[2020-03-28] MEDS: ENOXAPARIN SODIUM 40 MG/0.4 ML SYRINGE SQ SCH (08:05)
--- NOTE | 2020-03-28 10:30 | NUR ---
DR. KRISHNA IS MAKING HIS ROUNDS. PATIENT TESTED POSITIVE FOR COVID-19. AWAITING [facility] TO CALL FOR POSSIBLE DISCHARGE HOME WITH HOME HEALTH.
[2020-03-28 11:00] VITALS: BP 131/76
--- NOTE | 2020-03-28 12:11 | NUR ---
ANU XIAO OFFERED PATIENT ASSISTANCE WITH LUNCH. PATIENT REFUSED TO EAT AT THIS TIME. HE SAID THAT HE DOES NOT HAVE APPETITE.
[2020-03-28] MEDS: CEFTRIAXONE SODIUM 1 GM IVP SCH (14:25)
[2020-03-28] MEDS: AZITHROMYCIN 500MG+NS 250ML 250 ML IV SCH (14:26)
--- NOTE | 2020-03-28 14:50 | NUR ---
PHYSICAL THERAPY IN TO EVALUATE PATIENT.
--- NOTE | 2020-03-28 15:23 | NUR ---
DC PLAN SPOKE TO [facility] SAID THAT THEY CAN NOT SET UP HOME BASED SERVICES ANY TIME SOON. PROBABLY ANOTHER 2 TO 3 WEEKS ONE BECAUSE IT TAKES A WHILE AND TWO BECAUSE PATIENT COVID POSITIVE. SPOKE TO MD SINCE PATIENT RETURNED FOR PNEUMONIA ORDERED IV ABX FOR 7 DAYS. SPOKE TO SON REGARDING INFORMATION SAID OKAY TO SEND REFERRAL TO SNF. INFO SENT TO [facility]. Addendum: 03/28/20 at 1527 by LUZ MARINA DE LA CRUZ RN CM Amended: Links added.
[2020-03-28 16:00] VITALS: BP 149/91
--- NOTE | 2020-03-28 17:22 | NUR ---
UPDATED DR. GRIFFIN ON PATIENT STATUS. SAID TO CONTINUE IV FLUIDS AND ORDERED CHEST XRAY FOR TOMORROW MORNING.
[2020-03-28 19:58] VITALS: BP 137/84
[2020-03-29 00:12] VITALS: BP 157/80
[2020-03-29] MEDS: DEXTROSE 5%-LACTATED RINGERS 1,000 ML IV SCH (01:49)
[2020-03-29] MEDS: CEFTRIAXONE SODIUM 1 GM IVP SCH ×2 (01:49→09:31)
[2020-03-29 04:31] VITALS: BP 159/91
[2020-03-29 05:39] LABS: BASOPHILS % (AUTO) 0.2 % (0.0-5.0); EOSINOPHILS % (AUTO) 1.5 % (0.0-8.0); HEMATOCRIT 32.1 % (42-54); LYMPHOCYTES % (AUTO) 28.4 % (21.0-51.0); MEAN CORPUSCULAR HEMOGLOBIN 26.9 pg (27.0-33.0); MEAN CORPUSCULAR VOLUME 81.5 fL (79-99); MONOCYTES % (AUTO) 13.1 % (3.0-13.0); NEUTROPHILS % (AUTO) 56.3 % (40.0-77.0); PLATELET COUNT (AUTO) 175 K/uL (130-400); RED BLOOD CELL COUNT(AUTO) 3.94 MIL/uL (4.50-6.20); RED CELL DISTRIBUTION WIDTH 15.9 % (11.0-15.5)
[2020-03-29 06:03] LABS: B-TYPE NATRIURETIC PEPTIDE 162 pg/mL (0-100)
[2020-03-29 06:32] LABS: CARBON DIOXIDE 27 mmol/L (21-32); CHLORIDE 103 mmol/L (101-111); CREATININE 0.9 mg/dL (0.5-1.5); GLOMERULAR FILTR. RATE CALC 85 mL/min (>60); GLUCOSE,RANDOM 90 mg/dL (70-105); PHOSPHORUS 2.7 mg/dL (2.5-4.9); POTASSIUM 3.5 mmol/L (3.5-5.1); SODIUM SERUM 137 mmol/L (136-145); UREA NITROGEN, BLOOD 10 mg/dL (7-18)
[2020-03-29 07:00] VITALS: BP 140/76
[2020-03-29] MEDS: INSULIN HUMULIN R 100 UNIT/ML 3ML SQ SCH ×4 (07:30→21:00)
[2020-03-29] MEDS ORDERED: HYDROCHLOROTHIAZIDE 25 MG TABLET PO SCH (09:00)
[2020-03-29] MEDS: AZITHROMYCIN 500MG+NS 250ML 250 ML IV SCH (09:30)
[2020-03-29] MEDS: SERTRALINE HCL 50 MG TABLET PO SCH (09:32)
[2020-03-29] MEDS: METFORMIN HCL 500 MG TABLET PO SCH (09:32)
[2020-03-29] MEDS: ENOXAPARIN SODIUM 40 MG/0.4 ML SYRINGE SQ SCH (09:32)
[2020-03-29] MEDS: ASPIRIN 81 MG EC TAB PO SCH (09:33)
[2020-03-29] MEDS: TAMSULOSIN HCL 0.4 MG CAP.ER.24H PO SCH (09:33)
[2020-03-29] MEDS: FAMOTIDINE 20MG TAB 20 MG TAB PO SCH ×2 (09:33→21:47)
[2020-03-29] MEDS: FINASTERIDE 5 MG TABLET PO SCH (09:34)
[2020-03-29] MEDS: ASCORBIC ACID 500 MG TAB PO SCH (09:34)
[2020-03-29] MEDS: AMLODIPINE BESYLATE 5 MG TAB PO SCH (09:34)
[2020-03-29 11:00] VITALS: BP 125/69
[2020-03-29] MEDS: DRONABINOL 2.5 MG CAP PO SCH (12:46)
--- NOTE | 2020-03-29 12:56 | NUR ---
DC PLAN SENT UPDATES TO [facility] INCLUDING COVID RESULTS. PATIENT POSITIVE 03/21 AND 03/25. Addendum: 03/29/20 at 1256 by LUZ MARINA DE LA CRUZ RN CM Amended: Links added.
[2020-03-29 16:00] VITALS: BP 129/71
[2020-03-29 20:40] VITALS: BP 138/72
[2020-03-30 00:01] VITALS: BP 142/70
[2020-03-30] MEDS: CEFTRIAXONE SODIUM 1 GM IVP SCH ×2 (01:51→13:20)
[2020-03-30 04:09] VITALS: BP 162/81
[2020-03-30 07:30] VITALS: BP 137/82
[2020-03-30] MEDS: INSULIN HUMULIN R 100 UNIT/ML 3ML SQ SCH ×4 (07:30→20:09)
[2020-03-30] MEDS: ASCORBIC ACID 500 MG TAB PO SCH (07:55)
[2020-03-30] MEDS: TAMSULOSIN HCL 0.4 MG CAP.ER.24H PO SCH (07:55)
[2020-03-30] MEDS: METFORMIN HCL 500 MG TABLET PO SCH (07:55)
[2020-03-30] MEDS: ASPIRIN 81 MG EC TAB PO SCH (07:55)
[2020-03-30] MEDS: FAMOTIDINE 20MG TAB 20 MG TAB PO SCH ×2 (07:55→20:10)
[2020-03-30] MEDS: AMLODIPINE BESYLATE 5 MG TAB PO SCH (07:55)
[2020-03-30] MEDS: LISINOPRIL 5 MG TABLET PO SCH (07:56)
[2020-03-30] MEDS: FINASTERIDE 5 MG TABLET PO SCH (07:56)
[2020-03-30] MEDS: HYDROCHLOROTHIAZIDE 25 MG TABLET PO SCH (07:56)
[2020-03-30] MEDS: SERTRALINE HCL 50 MG TABLET PO SCH (07:56)
[2020-03-30] MEDS: DRONABINOL 2.5 MG CAP PO SCH (07:56)
[2020-03-30] MEDS: ENOXAPARIN SODIUM 40 MG/0.4 ML SYRINGE SQ SCH (07:58)
--- NOTE | 2020-03-30 08:10 | NUR ---
ASSISTED TO SET UP FOR BREAKFAST. CALL LIGHT WITHIN REACH.
[2020-03-30] MEDS ORDERED: DRONABINOL 2.5 MG CAP PO ONE (09:00)
--- NOTE | 2020-03-30 12:00 | NUR ---
ASSISTED TO SET UP FOR LUNCH. PT. ABLE TO FEED SELF. DECLINED ASSISTANCE TO FEED.
[2020-03-30 12:53] VITALS: BP 127/75
--- NOTE | 2020-03-30 14:53 | NUR ---
Department of Health Follow up Called Romelia with the [facility] at [phone] and [phone]. No answer on either line. Left requesting clarification on SNF admission process with COVID positive patients. Will continue to follow. Called and spoke to Adia with [facility] who states the [facility] is recommending 2 negative COVID tests > or = 24hrs apart. States will talk to their regional ID Director and call CM back.
[2020-03-30] MEDS ORDERED: HYDR25TA PO (15:29)
[2020-03-30 15:30] VITALS: BP 109/60
[2020-03-30] MEDS: AZITHROMYCIN 500MG+NS 250ML 250 ML IV SCH (15:43)
[2020-03-30 20:07] VITALS: BP 128/74
[2020-03-31] VITALS (7 sets, daily range): BP systolic 111–146; BP diastolic 71–95
[2020-03-31] MEDS: CEFTRIAXONE SODIUM 1 GM IVP SCH ×2 (01:28→14:17)
[2020-03-31] MEDS: INSULIN HUMULIN R 100 UNIT/ML 3ML SQ SCH ×5 (06:06→20:58)
[2020-03-31] MEDS: LISINOPRIL 5 MG TABLET PO SCH (08:52)
[2020-03-31] MEDS: FINASTERIDE 5 MG TABLET PO SCH (08:52)
[2020-03-31] MEDS: SERTRALINE HCL 50 MG TABLET PO SCH (08:52)
[2020-03-31] MEDS: FAMOTIDINE 20MG TAB 20 MG TAB PO SCH ×2 (08:52→20:44)
[2020-03-31] MEDS: METFORMIN HCL 500 MG TABLET PO SCH (08:52)
[2020-03-31] MEDS: ASCORBIC ACID 500 MG TAB PO SCH (08:53)
[2020-03-31] MEDS: ENOXAPARIN SODIUM 40 MG/0.4 ML SYRINGE SQ SCH (08:53)
[2020-03-31] MEDS: HYDROCHLOROTHIAZIDE 25 MG TABLET PO SCH (08:53)
[2020-03-31] MEDS: AMLODIPINE BESYLATE 5 MG TAB PO SCH (08:53)
[2020-03-31] MEDS: TAMSULOSIN HCL 0.4 MG CAP.ER.24H PO SCH (08:53)
[2020-03-31] MEDS: ASPIRIN 81 MG EC TAB PO SCH (08:53)
[2020-03-31] MEDS: AZITHROMYCIN 500MG+NS 250ML 250 ML IV SCH (15:13)
--- NOTE | 2020-03-31 16:19 | NUR ---
RD SCREEN - LOS X 7 Pt admitted for CAP, GBW. Tested positive for COVID-19, asymptomatic. Pt tolerating Heart healthy diet order, Ensure TID with no report of GI distress, Good PO intake at 100%. Recommend continue current diet order. RD to continue to monitor. Please notify as nutritional concerns arise. Thank you. Addendum: 03/31/20 at [address] Amended: Links added.
--- NOTE | 2020-03-31 16:54 | NUR ---
RECEIVED CALL FROM DEVON LYNCH PT.'S DAUGHTER, PER HERSELF; QUESTIONS ANSWERED AND UPDATED ON STATUS.
[2020-04-01 03:20] VITALS: BP 151/77
[2020-04-01] MEDS: CEFTRIAXONE SODIUM 1 GM IVP SCH ×2 (04:06→14:43)
[2020-04-01 05:14] LABS: BASOPHILS % (AUTO) 0.5 % (0.0-5.0); EOSINOPHILS % (AUTO) 1.9 % (0.0-8.0); HEMATOCRIT 30.7 % (42-54); LYMPHOCYTES % (AUTO) 34.9 % (21.0-51.0); MEAN CORPUSCULAR HEMOGLOBIN 27.3 pg (27.0-33.0); MEAN CORPUSCULAR HGB CONC 33.2 g/dL (32.0-36.0); MEAN CORPUSCULAR VOLUME 82.3 fL (79-99); MONOCYTES % (AUTO) 14.5 % (3.0-13.0); NEUTROPHILS % (AUTO) 47.7 % (40.0-77.0); PLATELET COUNT (AUTO) 145 K/uL (130-400); RED BLOOD CELL COUNT(AUTO) 3.73 MIL/uL (4.50-6.20); WHITE BLOOD COUNT (AUTO) 4.1 K/uL (4.8-10.8)
[2020-04-01 05:40] LABS: CARBON DIOXIDE 27 mmol/L (21-32); CHLORIDE 106 mmol/L (101-111); GLOMERULAR FILTR. RATE CALC 75 mL/min (>60); GLUCOSE,RANDOM 88 mg/dL (70-105); POTASSIUM 3.3 mmol/L (3.5-5.1); SODIUM SERUM 141 mmol/L (136-145); UREA NITROGEN, BLOOD 10 mg/dL (7-18)
[2020-04-01] MEDS: INSULIN HUMULIN R 100 UNIT/ML 3ML SQ SCH ×4 (07:26→21:00)
[2020-04-01] MEDS: SERTRALINE HCL 50 MG TABLET PO SCH (08:13)
[2020-04-01] MEDS: ASPIRIN 81 MG EC TAB PO SCH (08:13)
[2020-04-01] MEDS: FAMOTIDINE 20MG TAB 20 MG TAB PO SCH ×2 (08:13→20:14)
[2020-04-01] MEDS: METFORMIN HCL 500 MG TABLET PO SCH (08:13)
[2020-04-01] MEDS: ASCORBIC ACID 500 MG TAB PO SCH (08:13)
[2020-04-01] MEDS: AMLODIPINE BESYLATE 5 MG TAB PO SCH (08:13)
[2020-04-01] MEDS: FINASTERIDE 5 MG TABLET PO SCH (08:13)
[2020-04-01] MEDS: TAMSULOSIN HCL 0.4 MG CAP.ER.24H PO SCH (08:13)
[2020-04-01] MEDS: HYDROCHLOROTHIAZIDE 25 MG TABLET PO SCH (08:13)
[2020-04-01] MEDS: LISINOPRIL 5 MG TABLET PO SCH (08:14)
[2020-04-01] MEDS: ENOXAPARIN SODIUM 40 MG/0.4 ML SYRINGE SQ SCH (08:15)
[2020-04-01 08:32] VITALS: BP 115/46
--- NOTE | 2020-04-01 09:40 | NUR ---
SPECIMEN COLLECTED FOR COVID-[address] KRISHNA. SENT TO LAB.
[2020-04-01] MEDS ORDERED: POTASSIUM CHLORIDE 20 MEQ ERTAB PO SCH (10:30)
--- NOTE | 2020-04-01 10:37 | NUR ---
chart reviewed. noted retest to covid test 03/31. PENDING RESULT CALL TO LUIS AT [facility] TO ASK IF NOW ABLE TO PROVIDE SERVICES TO PATIENT. PENDING CALL BACK Addendum: 04/01/20 at 1038 by BEVERLEY WINN RN CM Amended: Links added.
[2020-04-01 12:07] VITALS: BP 99/68
[2020-04-01] MEDS: AZITHROMYCIN 500MG+NS 250ML 250 ML IV SCH (14:44)
[2020-04-01 16:32] VITALS: BP 109/77
[2020-04-01 20:18] VITALS: BP 149/66
[2020-04-01 23:53] VITALS: BP 135/68
[2020-04-02] MEDS: CEFTRIAXONE SODIUM 1 GM IVP SCH ×2 (02:07→14:46)
[2020-04-02 04:10] VITALS: BP 123/78
[2020-04-02 05:58] LABS: BASOPHILS % (AUTO) 0.4 % (0.0-5.0); EOSINOPHILS % (AUTO) 1.5 % (0.0-8.0); HEMATOCRIT 29.8 % (42-54); LYMPHOCYTES % (AUTO) 38.9 % (21.0-51.0); MEAN CORPUSCULAR HEMOGLOBIN 27.2 pg (27.0-33.0); MEAN CORPUSCULAR HGB CONC 33.2 g/dL (32.0-36.0); MEAN CORPUSCULAR VOLUME 81.9 fL (79-99); NEUTROPHILS % (AUTO) 44.8 % (40.0-77.0); PLATELET COUNT (AUTO) 152 K/uL (130-400); RED BLOOD CELL COUNT(AUTO) 3.64 MIL/uL (4.50-6.20); RED CELL DISTRIBUTION WIDTH 15.9 % (11.0-15.5); WHITE BLOOD COUNT (AUTO) 4.6 K/uL (4.8-10.8)
[2020-04-02 06:15] LABS: CARBON DIOXIDE 25 mmol/L (21-32); CHLORIDE 106 mmol/L (101-111); GLOMERULAR FILTR. RATE CALC 75 mL/min (>60); GLUCOSE,RANDOM 88 mg/dL (70-105); PHOSPHORUS 2.7 mg/dL (2.5-4.9); POTASSIUM 3.9 mmol/L (3.5-5.1); SODIUM SERUM 139 mmol/L (136-145); UREA NITROGEN, BLOOD 14 mg/dL (7-18)
[2020-04-02] MEDS: INSULIN HUMULIN R 100 UNIT/ML 3ML SQ SCH ×4 (06:17→21:00)
[2020-04-02 06:24] LABS: B-TYPE NATRIURETIC PEPTIDE 56 pg/mL (0-100)
[2020-04-02 07:51] VITALS: BP 130/69
[2020-04-02] MEDS: ASCORBIC ACID 500 MG TAB PO SCH (09:41)
[2020-04-02] MEDS: ASPIRIN 81 MG EC TAB PO SCH (09:41)
[2020-04-02] MEDS: FINASTERIDE 5 MG TABLET PO SCH (09:41)
[2020-04-02] MEDS: FAMOTIDINE 20MG TAB 20 MG TAB PO SCH ×2 (09:41→21:00)
[2020-04-02] MEDS: AMLODIPINE BESYLATE 5 MG TAB PO SCH (09:41)
[2020-04-02] MEDS: SERTRALINE HCL 50 MG TABLET PO SCH (09:42)
[2020-04-02] MEDS: LISINOPRIL 5 MG TABLET PO SCH (09:42)
[2020-04-02] MEDS: HYDROCHLOROTHIAZIDE 25 MG TABLET PO SCH (09:43)
[2020-04-02] MEDS: TAMSULOSIN HCL 0.4 MG CAP.ER.24H PO SCH (09:43)
[2020-04-02] MEDS: METFORMIN HCL 500 MG TABLET PO SCH (09:43)
[2020-04-02] MEDS: ENOXAPARIN SODIUM 40 MG/0.4 ML SYRINGE SQ SCH (09:44)
[2020-04-02 12:14] VITALS: BP 124/73
[2020-04-02 16:19] VITALS: BP 123/65
[2020-04-02 19:47] VITALS: BP 124/68
[2020-04-03] VITALS (7 sets, daily range): BP systolic 115–132; BP diastolic 62–97
[2020-04-03] MEDS: CEFTRIAXONE SODIUM 1 GM IVP SCH ×2 (02:42→14:50)
[2020-04-03 05:39] LABS: BASOPHILS % (AUTO) 0.4 % (0.0-5.0); EOSINOPHILS % (AUTO) 2.4 % (0.0-8.0); HEMATOCRIT 29.8 % (42-54); LYMPHOCYTES % (AUTO) 36.8 % (21.0-51.0); MEAN CORPUSCULAR HEMOGLOBIN 26.4 pg (27.0-33.0); MEAN CORPUSCULAR HGB CONC 32.2 g/dL (32.0-36.0); MEAN CORPUSCULAR VOLUME 82.1 fL (79-99); MONOCYTES % (AUTO) 12.3 % (3.0-13.0); NEUTROPHILS % (AUTO) 47.7 % (40.0-77.0); PLATELET COUNT (AUTO) 150 K/uL (130-400); RED BLOOD CELL COUNT(AUTO) 3.63 MIL/uL (4.50-6.20); RED CELL DISTRIBUTION WIDTH 15.9 % (11.0-15.5)
[2020-04-03 05:50] LABS: POTASSIUM 3.7 mmol/L (3.5-5.1)
[2020-04-03] MEDS: INSULIN HUMULIN R 100 UNIT/ML 3ML SQ SCH ×4 (05:59→21:00)
[2020-04-03] MEDS: TAMSULOSIN HCL 0.4 MG CAP.ER.24H PO SCH (08:36)
[2020-04-03] MEDS: FAMOTIDINE 20MG TAB 20 MG TAB PO SCH ×2 (08:36→21:05)
[2020-04-03] MEDS: AMLODIPINE BESYLATE 5 MG TAB PO SCH (08:36)
[2020-04-03] MEDS: ASCORBIC ACID 500 MG TAB PO SCH (08:36)
[2020-04-03] MEDS: ENOXAPARIN SODIUM 40 MG/0.4 ML SYRINGE SQ SCH (08:36)
[2020-04-03] MEDS: ASPIRIN 81 MG EC TAB PO SCH (08:36)
[2020-04-03] MEDS: LISINOPRIL 5 MG TABLET PO SCH (08:37)
[2020-04-03] MEDS: SERTRALINE HCL 50 MG TABLET PO SCH (08:37)
[2020-04-03] MEDS: FINASTERIDE 5 MG TABLET PO SCH (08:37)
[2020-04-03] MEDS: HYDROCHLOROTHIAZIDE 25 MG TABLET PO SCH (08:37)
[2020-04-03] MEDS: METFORMIN HCL 500 MG TABLET PO SCH (08:37)
--- NOTE | 2020-04-03 11:19 | NUR ---
pending results of two covid tests IF NEGATIVE, OPTIONS FOR DISCHARGE LOCATIONS INCREASE- IF POSTIVE, STILL WAITING FOR [facility]. Addendum: 04/03/20 at 1120 by BEVERLEY WINN RN CM Amended: Links added.
--- NOTE | 2020-04-03 22:15 | NUR ---
MERCHANDISE FLOW TEAM MEMBER notified patient is positive for COVID 10 test.No new order received.
[2020-04-04] MEDS: CEFTRIAXONE SODIUM 1 GM IVP SCH (02:14)
[2020-04-04 04:00] VITALS: BP 117/68
[2020-04-04 06:00] LABS: BASOPHILS % (AUTO) 0.4 % (0.0-5.0); EOSINOPHILS % (AUTO) 2.4 % (0.0-8.0); HEMATOCRIT 29.6 % (42-54); LYMPHOCYTES % (AUTO) 37.8 % (21.0-51.0); MEAN CORPUSCULAR HEMOGLOBIN 26.8 pg (27.0-33.0); MEAN CORPUSCULAR HGB CONC 32.4 g/dL (32.0-36.0); MEAN CORPUSCULAR VOLUME 82.7 fL (79-99); MONOCYTES % (AUTO) 11.5 % (3.0-13.0); NEUTROPHILS % (AUTO) 47.7 % (40.0-77.0); PLATELET COUNT (AUTO) 151 K/uL (130-400); RED BLOOD CELL COUNT(AUTO) 3.58 MIL/uL (4.50-6.20); WHITE BLOOD COUNT (AUTO) 5.4 K/uL (4.8-10.8)
[2020-04-04 06:22] LABS: ALBUMIN 2.5 g/dL (3.5-5.0); BILIRUBIN,TOTAL 0.2 mg/dL (0.2-1.0); POTASSIUM 3.7 mmol/L (3.5-5.1); TOTAL PROTEIN, SERUM 6.5 g/dL (6.0-8.3)
[2020-04-04] MEDS: INSULIN HUMULIN R 100 UNIT/ML 3ML SQ SCH ×4 (06:37→20:03)
[2020-04-04 07:30] VITALS: BP 135/70
[2020-04-04] MEDS: AMLODIPINE BESYLATE 5 MG TAB PO SCH (08:22)
[2020-04-04] MEDS: TAMSULOSIN HCL 0.4 MG CAP.ER.24H PO SCH (08:22)
[2020-04-04] MEDS: SERTRALINE HCL 50 MG TABLET PO SCH (08:22)
[2020-04-04] MEDS: ASCORBIC ACID 500 MG TAB PO SCH (08:22)
[2020-04-04] MEDS: FAMOTIDINE 20MG TAB 20 MG TAB PO SCH ×2 (08:22→21:16)
[2020-04-04] MEDS: METFORMIN HCL 500 MG TABLET PO SCH (08:22)
[2020-04-04] MEDS: LISINOPRIL 5 MG TABLET PO SCH (08:22)
[2020-04-04] MEDS: FINASTERIDE 5 MG TABLET PO SCH (08:22)
[2020-04-04] MEDS: HYDROCHLOROTHIAZIDE 25 MG TABLET PO SCH (08:22)
[2020-04-04] MEDS: ASPIRIN 81 MG EC TAB PO SCH (08:22)
[2020-04-04] MEDS: ENOXAPARIN SODIUM 40 MG/0.4 ML SYRINGE SQ SCH (08:26)
[2020-04-04 11:41] VITALS: BP 107/52
--- NOTE | 2020-04-04 13:15 | NUR ---
BEDSIDE REPORT GIVEN TO BRENNA CHANDLER AT THIS TIME
--- NOTE | 2020-04-04 14:00 | NUR ---
COVID-19 RETEST PUTTYING AND CALKING SUPERVISOR JESSY SPOKE WITH DR. KRIHSNA REGARDING COVID-19 LAB TEST RECHECK SINCE PATIENT HAD COVID-19 RETEST ON 04/01/[address] KRISHNA REPLIED HE WANTED A RECHECK. OBTAINED R D MANAGER SPECIMEN FOR COVID-19 LAB TEST AND SENT TO LAB.
[2020-04-04 16:05] VITALS: BP 110/65
[2020-04-04 20:00] VITALS: BP 101/65
[2020-04-05] VITALS (7 sets, daily range): BP systolic 113–133; BP diastolic 66–81
[2020-04-05 06:01] LABS: BASOPHILS % (AUTO) 0.4 % (0.0-5.0); EOSINOPHILS % (AUTO) 2.5 % (0.0-8.0); HEMATOCRIT 29.4 % (42-54); LYMPHOCYTES % (AUTO) 39.6 % (21.0-51.0); MEAN CORPUSCULAR HGB CONC 32.7 g/dL (32.0-36.0); MEAN CORPUSCULAR VOLUME 82.6 fL (79-99); MONOCYTES % (AUTO) 10.8 % (3.0-13.0); NEUTROPHILS % (AUTO) 46.5 % (40.0-77.0); PLATELET COUNT (AUTO) 161 K/uL (130-400); RED BLOOD CELL COUNT(AUTO) 3.56 MIL/uL (4.50-6.20); WHITE BLOOD COUNT (AUTO) 5.6 K/uL (4.8-10.8)
[2020-04-05 06:30] LABS: ALBUMIN 2.5 g/dL (3.5-5.0); BILIRUBIN,TOTAL 0.2 mg/dL (0.2-1.0); POTASSIUM 3.6 mmol/L (3.5-5.1); TOTAL PROTEIN, SERUM 6.4 g/dL (6.0-8.3)
[2020-04-05] MEDS: INSULIN HUMULIN R 100 UNIT/ML 3ML SQ SCH ×3 (06:36→20:18)
[2020-04-05 06:37] LABS: % IRON SATURATION 24.8 % (30-44)
--- NOTE | 2020-04-05 08:15 | NUR ---
ASSESSMENT ENCOUNTERED PT A&OX3, FLAT AFFECT, BUT FORGETFUL, CALM COOPERATIVE AND DOES NOT APPEAR TO BE IN ANY DISTRESS. PT DENIES PAIN, SOB, NAUSEA. PT IS AMBULATORY, GAIT STEADY AND STRONG WITH STAND BY ASSIST. CALL LIGHT WITHIN REACH.
[2020-04-05] MEDS: ASCORBIC ACID 500 MG TAB PO SCH (08:22)
[2020-04-05] MEDS: TAMSULOSIN HCL 0.4 MG CAP.ER.24H PO SCH (08:22)
[2020-04-05] MEDS: FAMOTIDINE 20MG TAB 20 MG TAB PO SCH ×2 (08:22→20:06)
[2020-04-05] MEDS: SERTRALINE HCL 50 MG TABLET PO SCH (08:22)
[2020-04-05] MEDS: AMLODIPINE BESYLATE 5 MG TAB PO SCH (08:22)
[2020-04-05] MEDS: ASPIRIN 81 MG EC TAB PO SCH (08:22)
[2020-04-05] MEDS: FINASTERIDE 5 MG TABLET PO SCH (08:23)
[2020-04-05] MEDS: ENOXAPARIN SODIUM 40 MG/0.4 ML SYRINGE SQ SCH (08:23)
[2020-04-05] MEDS: METFORMIN HCL 500 MG TABLET PO SCH (08:23)
[2020-04-05] MEDS: HYDROCHLOROTHIAZIDE 25 MG TABLET PO SCH (08:23)
[2020-04-05] MEDS: LISINOPRIL 5 MG TABLET PO SCH (08:23)
--- NOTE | 2020-04-05 11:14 | NUR ---
SABINA SMITH FROM [facility] CALLED SAID THAT THE [facility] HAS SENT 4 NURSES TO HELP WITH STAFF SHORTAGE. ASKED FOR UPDATES ON PATIENT. INFO SENT VIA EMAIL. Addendum: 04/05/20 at 1115 by LUZ MARINA DE LA CRUZ RN CM Amended: Links added.
[2020-04-05] MEDS: FERROUS SULFATE 325 MG TABLET.DR PO SCH (20:06)
[2020-04-06 03:33] VITALS: BP 115/65
[2020-04-06] MEDS: INSULIN HUMULIN R 100 UNIT/ML 3ML SQ SCH ×3 (05:37→16:30)
[2020-04-06 06:59] LABS: BASOPHILS % (AUTO) 0.4 % (0.0-5.0); EOSINOPHILS % (AUTO) 1.9 % (0.0-8.0); HEMATOCRIT 28.9 % (42-54); LYMPHOCYTES % (AUTO) 33.9 % (21.0-51.0); MEAN CORPUSCULAR HEMOGLOBIN 27.1 pg (27.0-33.0); MEAN CORPUSCULAR HGB CONC 32.9 g/dL (32.0-36.0); MEAN CORPUSCULAR VOLUME 82.6 fL (79-99); MONOCYTES % (AUTO) 11.1 % (3.0-13.0); NEUTROPHILS % (AUTO) 52.4 % (40.0-77.0); PLATELET COUNT (AUTO) 183 K/uL (130-400); RED CELL DISTRIBUTION WIDTH 16.1 % (11.0-15.5); WHITE BLOOD COUNT (AUTO) 6.9 K/uL (4.8-10.8)
[2020-04-06 07:23] LABS: ALBUMIN 2.6 g/dL (3.5-5.0); BILIRUBIN,TOTAL 0.2 mg/dL (0.2-1.0); CREATININE 0.9 mg/dL (0.5-1.5); POTASSIUM 3.8 mmol/L (3.5-5.1); TOTAL PROTEIN, SERUM 6.5 g/dL (6.0-8.3)
[2020-04-06] MEDS: ASCORBIC ACID 500 MG TAB PO SCH (08:20)
[2020-04-06] MEDS: FINASTERIDE 5 MG TABLET PO SCH (08:20)
[2020-04-06] MEDS: HYDROCHLOROTHIAZIDE 25 MG TABLET PO SCH (08:20)
[2020-04-06] MEDS: METFORMIN HCL 500 MG TABLET PO SCH (08:20)
[2020-04-06] MEDS: LISINOPRIL 5 MG TABLET PO SCH (08:20)
[2020-04-06] MEDS: TAMSULOSIN HCL 0.4 MG CAP.ER.24H PO SCH (08:20)
[2020-04-06] MEDS: AMLODIPINE BESYLATE 5 MG TAB PO SCH (08:20)
[2020-04-06] MEDS: ASPIRIN 81 MG EC TAB PO SCH (08:20)
[2020-04-06] MEDS: FERROUS SULFATE 325 MG TABLET.DR PO SCH (08:21)
[2020-04-06] MEDS: FAMOTIDINE 20MG TAB 20 MG TAB PO SCH (08:21)
[2020-04-06] MEDS: SERTRALINE HCL 50 MG TABLET PO SCH (08:21)
[2020-04-06] MEDS: ENOXAPARIN SODIUM 40 MG/0.4 ML SYRINGE SQ SCH (08:22)
[2020-04-06 08:47] VITALS: BP 121/66
[2020-04-06] MEDS ORDERED: ASCORBIC ACID 500 MG TAB PO SCH (09:00)
--- NOTE | 2020-04-06 13:10 | NUR ---
SABINA PEÑA SPOKE TO [facility] WITH [facility] THIS MORNING. SAID THAT SHE SPOKE TO SON AND LET HIM KNOW COPAY OF 176 A DAY. PER FAMILY TO [facility] WILL TAKE HOME. CALLED SON CHARLIE GIBBS SPOKE TO HIM AND CONFIRMED THAT YES THEY ARE OKAY WITH TAKING PATIENT HOME. SAID TO CALL BROTHER SEAN GIBBS [phone] FOR ENVIRONMENTAL FIELD SERVICES TECHNICIAN. LET CHARGE NURSE AND NURSE KNOW OF PATIENT OKAY TO DC HOME JUST NEED MD ORDER. Addendum: 04/06/20 at 1313 by LUZ MARINA DE LA CRUZ RN CM Amended: Links added.
[2020-04-06 13:23] VITALS: BP 118/66
[2020-04-06] MEDS ORDERED: FERR324T4 PO (14:57)
[2020-04-06] MEDS ORDERED: LISI-617 PO (14:57)
== END 2020-04-06 19:25 | disposition home or self-care (01) | DRG 177 ==
LOC: EDH 20:56 → EDHIP 20:57 → 4CH 03-25 → 2DH 03-25 01:22
PROVIDERS: ADMIT Internal Medicine; ATTEND Internal Medicine
DX: U07.1 COVID-19 (principal); J12.89 Other viral pneumonia; N39.0 Urinary tract infection, site not specified; J44.0 Chronic obstructive pulmonary disease with (acute) lower respiratory infection; E11.9 Type 2 diabetes mellitus without complications; E87.6 Hypokalemia; E78.5 Hyperlipidemia, unspecified; E86.0 Dehydration; F03.90 Unspecified dementia, unspecified severity, without behavioral disturbance, psychotic disturbance, mood disturbance, and anxiety; F32.9 Major depressive disorder, single episode, unspecified; I10 Essential (primary) hypertension; I48.91 Unspecified atrial fibrillation; N40.0 Benign prostatic hyperplasia without lower urinary tract symptoms; Z81.8 Family history of other mental and behavioral disorders; Z82.49 Family history of ischemic heart disease and other diseases of the circulatory system; Z83.3 Family history of diabetes mellitus; Z95.0 Presence of cardiac pacemaker
CPT/HCPCS: 36415; 71045; 80048; 80053; 82550; 82728; 82948; 83540; 83550; 83605; 83735; 83880; 84100; 84145; 84484; 85025; 85378; 85610; 85730; 86140; 87040; 87633; 87635; 87804; 93005; 94640; 94664; G0378; J0456; J0696; J1650; J1815; J2543; J3490; Q0167